=== PATIENT | male | born 1955 | race Caucasian/White ===

== ENCOUNTER 2016-11-28 06:29 | Inpatient (IN) | payer BC ==
--- NOTE | ~2016-11-28 | CN ---
Consultation Report [facility] [address] [place]. [address] NAME: AZIZA JASON : 55 STATUS : ADM IN PAT#: [id number] AGE: 61 ADM/REG DATE : 11/28/16 MR#: [id number] REPORT SERV DATE: 11/29/16 DICTATED BY: TOBI POWELL DATE: 11/29/16 REPORT STATUS : Draft TRANSCRIBED BY: MODL DATE: 11/29/16 CONSULTATION DATE OF CONSULTATION: 11/29/2016 PERTINENT HISTORY: The patient is a 61-year-old gentleman who underwent cardiac catheterization by Dr. Tobi Evangelista due to diminished left ventricular function with concern of coronary artery disease. Cardiac catheterization demonstrated 50% LAD artery stenosis with very tight stenosis of the ramus intermedius, circumflex artery, and proximal right coronary artery. The left ventricular function is not examined by left ventriculogram. Previous echocardiogram demonstrated decreased cardiac function. The patient had been referred for cardiac surgical intervention. The patient did have dual chamber permanent pacemaker in place due to heart block. PAST MEDICAL HISTORY: Significant for no previous open cardiothoracic surgery. he had a previous history of dual chamber permanent pacemaker placement, left infraclavicular region and had history of hypertension, hyperlipidemia. SOCIAL HISTORY: Negative for tobacco or ethanol use. FAMILY HISTORY: Positive for coronary disease. REVIEW OF SYSTEMS: Negative except those listed in the history of present illness. PHYSICAL EXAMINATION: VITAL SIGNS: Examination is afebrile. Blood pressure was 140/90, heart rate was 70 and paced. GENERAL: He is in no acute distress. CONSTITUTIONAL: Well-developed, well-nourished. NEUROLOGICAL: He is intact. RESPIRATORY: clear, bilateral. LUNGS: With no wheeze, rales, or rhonchi. CARDIAC: Regular rate and rhythm, paced and no murmur noted. VASCULAR: The vascular exam showed a full pulse throughout. GI: Examination showed the abdomen is soft and nontender, without masses. EXTREMITIES: Showed no edema. SKIN: Showed no rash. The cardiac catheterization by nc demonstrated LAD artery stenosis, approximately 40% to 50% proximally and a tight lesion very distally. There is a lesion involving the ramus intermedius and circumflex arteries and also lesion of proximal right coronary artery. IMPRESSION: At this time is severe two-vessel coronary disease, diminished left ventricular function. We will plan to proceed with coronary revascularization. We will proceed with Consultation Report [facility] [address] [place]. [address] NAME: AZIZA JASON : 55 STATUS : ADM IN PAT#: [id number] AGE: 61 ADM/REG DATE : 11/28/16 MR#: [id number] REPORT SERV DATE: 11/29/16 DICTATED BY: TOBI POWELL DATE: 11/29/16 REPORT STATUS : Draft TRANSCRIBED BY: KIRSTY DATE: 11/29/16 intraoperative transesophageal echocardiogram to evaluate the left ventricular function as well as mitral valve function. JACKY/KIRSTY Tobi Powell M.D. / [id number] CC: Rupinder Gagnon Jr., IV
--- NOTE | ~2016-11-28 | DS ---
Discharge Summary [facility] [address] [place]. [address] NAME: AZIZA JASON : 55 STATUS : DIS IN PAT#: [id number] AGE: 61 ADM/REG DATE : 11/28/16 MR#: [id number] REPORT SERV DATE: 12/18/16 DICTATED BY: TOBI POWELL DATE: 12/17/16 REPORT STATUS : Draft TRANSCRIBED BY: KIRSTY DATE: 12/17/16 Data Collection from hospitalization DISCHARGE DIAGNOSES: 1. Coronary artery disease, status post coronary artery bypass grafting. 2. Ventricular tachycardia. 3. Type 2 diabetes mellitus. 4. Hypertension. 5. Paroxysmal atrial fibrillation. 6. History of complete heart block. CONSULTATIONS: Nando Evangelista M.D. and Bird Mccloud NP PROCEDURES PERFORMED: 1. Cardiac catheterization, 11/28/2016. 2. Urgent coronary artery bypass grafting x4 with endoscopic vein harvest utilizing reverse saphenous vein graft from the aorta to the left anterior descending artery from the aorta to the ramus intermedius, from the aorta to the obtuse marginal artery, from the aorta to the right coronary artery. Also, mitral valve repair utilizing 28 mm Paula annuloplasty ring, ligation of left atrial appendage, and transesophageal echocardiography, 11/29/2016. 3. Vein mapping of the bilateral lower extremities, 11/28/2016. MEDICATIONS: Aspirin 1 tablet daily, Lipitor 40 mg at bedtime, Coreg 3.125 mg twice a day, Amaryl 1 tablet daily, [place] 5/325 one to two tablets every six hours as needed, Prinivil 2.5 mg daily, Glucophage 1000 mg with breakfast and supper, Aldactone 25 mg daily. He was instructed not to continue Invokamet or Viagra. CONDITION AT DISCHARGE: Stable. DISPOSITION: The patient was discharged to home. A low-cholesterol, low-sodium 2000 calorie diabetic diet with activities as instructed. He would follow up with Dr. Cedric Alves, 12/30/2016, and would follow up with Dr. Chaitanya Phillips, 02/11/2017. He would follow up in the [facility], 02/03/2017. HOSPITAL COURSE: This is a 61-year-old man who underwent current pacemaker placement due to heart block. A previous echocardiogram had demonstrated decreased cardiac function. It was felt the patient would need to undergo cardiac catheterization and possible further intervention. He was admitted to the hospital at this time for further evaluation and treatment. Upon admission, he was taken to the cardiac clam bed laborer by Dr. Gagnon where he underwent the above-mentioned procedure. He tolerated this well. There were no complications. The cardiac catheterization demonstrated 50% LAD stenosis with very tight stenosis of the ramus intermedius, circumflex artery, and proximal right coronary artery. It was felt that the patient would need to undergo coronary artery bypass grafting. The following day, he was taken to the operating room where he underwent the above-mentioned procedure. He tolerated this well and there were no complications. On postop day 1, he Discharge Summary [address] [place]. [address] NAME: AZIZA JASON : 55 STATUS : DIS IN [facility]#: [id number] AGE: 61 ADM/REG DATE : 11/28/16 MR#: [id number] REPORT SERV DATE: 12/18/16 DICTATED BY: TOBI POWELL DATE: 12/17/16 REPORT STATUS : Draft TRANSCRIBED BY: KIRSTY DATE: 12/17/16 looks good. We encouraged him to use pulmonary toilet. Inotropes were being weaned. He had no shortness of breath. He did have some bladder spasms. He does have a decreased ejection fraction, but it was stable. He was going to be placed on Pyridium or oxybutynin. His incisions looked okay. On postop day #2, he continued to do well. He was now off Dobutrex. Pacing wires were removed. The [place] catheter was discontinued. He looks better. He had no shortness of breath. His bladder spasms had decreased. He was seen by Bird Mccloud. The patient had a run of ventricular tachycardia. He had been asked to see the patient regarding diabetes. Aggressive pulmonary toilet continued. On 12/02/2016, he was alert and cooperative. He had no further recurrence of ventricular tachycardia on amiodarone. He was eating well and feeling better. He had no new issues. Insulin was adjusted. We were going to resume the metformin. The next day, he was encouraged to mobilize. The wound VAC remained in place. He did have a bowel movement. He had some incisional soreness, but no other complaints. Over the next couple of days, he continued to progress. Discharge planning was performed. He said he was feeling good. We encouraged him to increase his activity. He was going to be discharged with a LifeVest. Discharge planning continued. His chest tube was removed. His insulin regimen was adjusted. On 12/06/2016, he continued to do well. Blood sugars were well controlled. A LifeVest was placed. Discharge instructions were given. Due to his improved and stable condition, he was discharged to home to be followed by home health care with the above- stated instructions. Information collected by: Mala Kirby I submit the above information as my discharge summary. TG/MODL Tobi Powell M.D. / [id number] CC: Rupinder Gagnon Jr., M.D.
--- NOTE | ~2016-11-28 | OP ---
Record Of Operation [facility] [address] [place]. [address] NAME: AZIZA JASON : 55 STATUS : ADM IN PAT#: [id number] AGE: 61 ADM/REG DATE : 11/28/16 MR#: [id number] REPORT SERV DATE: 11/30/16 DICTATED BY: TOBI POWELL DATE: 11/29/16 REPORT STATUS : Draft TRANSCRIBED BY: MODL DATE: 11/29/16 DATE OF PROCEDURE: 11/29/2016 PREOPERATIVE DIAGNOSES: Coronary artery disease, congestive heart failure, and mitral insufficiency. POSTOPERATIVE DIAGNOSES: Coronary artery disease, congestive heart failure, and mitral insufficiency. OPERATIVE PROCEDURE: Urgent coronary artery bypass grafting x4 with endoscopic vein harvest utilizing reverse saphenous vein graft from the aorta to the left anterior descending artery, from the aorta to the ramus intermedius, from the aorta to the obtuse marginal artery, from the aorta to the right coronary artery; also mitral valve repair utilizing a 28 mm Paula annuloplasty ring; ligation of left atrial appendage; and transesophageal echocardiography. OPERATIVE SURGEON: Tobi Powell M.D. ANESTHESIA: General endotracheal anesthesia, AA. Chest tubes were placed, one chest tube in the mediastinum. Pacing wires were placed, two in the right ventricle and two in the right atrium. PERTINENT HISTORY: The patient is a 61-year-old gentleman, admitted to the hospital by Dr. Evangelista with a diagnosis of cardiomyopathy, possibly ischemic. The patient was admitted to the hospital for cardiac catheterization. The catheterization demonstrated very diffuse three-vessel coronary artery disease. An echocardiogram noted diminished left ventricular function. No left ventriculogram had been performed. The patient is noted to have mitral insufficiency by a transthoracic echocardiography. The patient has been referred for cardiac surgical intervention. OPERATIVE FINDINGS: The patient had severely diffuse coronary artery disease with diminished left ventricular function. Transesophageal echocardiogram demonstrated severe mitral insufficiency with a dilated left ventricle. At the completion of the procedure, there was no further mitral insufficiency after mitral valve repair. The proximal LAD artery stenosis was only approximately 40% to 50%; therefore, left internal mammary artery was not used to bypass the conduit, all vein conduit was used. DESCRIPTION OF PROCEDURE: The patient was taken to the operating room and placed in supine position. Anesthesia was obtained. The patient was prepped and draped in the usual sterile fashion. Transesophageal echocardiogram was performed demonstrating severely diminished ejection fraction of approximately 25% with severe mitral insufficiency. The greater saphenous vein was then harvested from the lower extremities with invasive technique and those wounds were closed in a two-layer fashion. Midline sternotomy incision was made and sternum was divided. Heparin was then infused. The patient was started on cardiopulmonary bypass. Retrograde cardioplegia cannula was placed. Antegrade cardioplegia cannula was Record Of Operation [facility] [id number] [facility] [place]. [address] NAME: AZIZA JASON : 55 STATUS : ADM IN PAT#: [id number] AGE: 61 ADM/REG DATE : 11/28/16 MR#: [id number] REPORT SERV DATE: 11/30/16 DICTATED BY: TOBI POWELL DATE: 11/29/16 REPORT STATUS : Draft TRANSCRIBED BY: KIRSTY DATE: 11/29/16 placed. Cross-clamp was then applied. cardioplegia was infused in antegrade and retrograde fashion over a period of 15 minutes. The right coronary artery was bypassed with reverse saphenous vein graft in an end-to-side fashion. The obtuse marginal artery was bypassed with reverse saphenous vein graft in an end-to-side fashion. The ramus intermedius was bypassed with reverse saphenous vein graft in an end-to-side fashion. The LAD artery was bypassed with reverse saphenous vein graft in an end-to-side fashion. The left atrium was then opened along the interatrial groove. Retractor was placed. The left atrial appendage was oversewn in a linear two-layer fashion with running 4-0 Prolene suture. Mitral valve was examined and found to be with a dilated annulus with mitral valve leaflets intact. A 2- 0 [place] nonpledgeted sutures were placed along the posterior annulus from one commissure to the next. These were then passed through the sewing ring of a 28 mm Paula annuloplasty ring. The ring was seated on the annulus. All sutures were tied with a Cor- Knot. The mitral valve was tested and found to be completely sufficient. The left atriotomy was then closed with running 4-0 Prolene suture. Cross-clamp was then placed with the four proximal anastomoses on the ascending aorta. Cross-clamp was removed. Good hemostasis was noted. Two pacing wires on the right ventricle and two on the right atrium and one chest tube was placed in the mediastinum. The patient was warmed to 36 centigrade to maintain his permanent paced rhythm with inotropic support. He was weaned from the cardiopulmonary bypass. Mitral valve was examined via transesophageal echocardiogram and was found to be completely sufficient, no leak. The left ventricular function noted to be improved. Protamine sulfate was infused. Hemostasis was adequate. Sternum was closed with four sternal cables. Soft tissue was closed in the usual manner. Sterile dressings were applied. The patient tolerated the procedure well and was taken back to the ICU in stable condition. JACKY/KIRSTY Tobi Powell M.D. / [id number] CC: Nando Evangelista Jr., M.D.
[~2016-11-28 06:29] MED LIST: AMARYL4 PO; ASAB PO; COREG3 PO; GLUCOPHAGE1000 MG PO; INVOKAMET; LIPITOR40 PO; LOP25 PO; PRAVACHOL80 MG PO; PRIN2.5 PO; PRIN5 PO; SPIRO25 PO; ULTRAM50 PO; VIAGRA25 PO
[2016-11-28 07:16] LABS: BUN (BLOOD UREA NITROGEN) 21 MG/DL (6-23); CALCIUM, SERUM 8.7 MG/DL (8.5-10.4); CHLORIDE, SERUM 106 MMOL/L (96-112); CHOL/HDL RATIO(NOT ORDER) 2.5 (0-5); CHOLESTEROL 118 MG/DL (< 200); CO2 (CARBON DIOXIDE) 29 MMOL/L (24-34); CREATININE 1.02 MG/DL (0.70-1.30); GFR AFRICAN AMERICAN 92 ML/MIN (>=60); GFR NON AFRICAN AMERICAN 79 ML/MIN (>=60); GLUCOSE, SERUM 183 MG/DL (60-99); HDL CHOLESTEROL 47 MG/DL (> 39); LDL CHOLESTEROL 51 MG/DL (< 130); NON-HDL CHOLESTEROL 71 MG/DL (< 160); POTASSIUM, SERUM 4.4 MMOL/L (3.5-5.3); SODIUM, SERUM 141 MMOL/L (135-148); TRIGLYCERIDE 100 MG/DL (< 150)
[2016-11-28 07:46] LABS: BASOPHILS 0.3 %; BASOPHILS ABSOLUTE 0.02 10/3/uL (0.0-0.16); EOSINOPHILS ABSOLUTE 0.14 10/3/uL (0.0-0.53); HEMATOCRIT 44.8 % (40.0-51.0); IMMATURE GRANULOCYTES 0.3 %; IMMATURE GRANULOCYTES ABSOLUTE 0.02 10/3/uL (0.0-0.11); LYMPHOCYTES 29.5 %; LYMPHOCYTES ABSOLUTE 2.04 10/3/uL (0.67-4.30); MANUAL DIFF NO %; MEAN CORPUS HGB CONC 35.7 g/dL (32.0-36.0); MEAN CORPUSCULAR HEMOGLOB 29.7 pg (26.0-34.0); MEAN CORPUSCULAR VOLUME 83.1 fL (80-100); MEAN PLATELET VOLUME 9.8 fL (9.2-13.0); MONOCYTES 7.4 %; MONOCYTES ABSOLUTE 0.51 10/3/uL (0.21-1.20); NEUTROPHILS 60.5 %; NEUTROPHILS ABSOLUTE 4.19 10/3/uL (2.02-8.40); PLATELET COUNT 179 10/3/uL (150-400); RBC DISTRIBUTION WIDTH 13.1 % (12.0-16.0); RED CELL COUNT 5.39 10/6/uL (4.7-6.1); WHITE BLOOD CELLS 6.9 10/3/uL (4.5-10.5)
[2016-11-28 16:55] LABS: ASCORBIC ACID (UR NOT ORDER) NEG (NEG); BILIRUBIN, URINE NEGATIVE (NEG); KETONE, URINE NEGATIVE (NEG); LEUKOCYTE ESTERASE(NOT OR NEG (NEG); WBC (NOT ORDERED) (RFLEX) 1 (0-5)
[2016-11-29 03:03] LABS: BASOPHILS 0.2 %; BASOPHILS ABSOLUTE 0.01 10/3/uL (0.0-0.16); EOSINOPHILS 2.1 %; EOSINOPHILS ABSOLUTE 0.12 10/3/uL (0.0-0.53); HEMATOCRIT 42.4 % (40.0-51.0); HEMOGLOBIN 15.2 g/dL (13.6-17.8); IMMATURE GRANULOCYTES 0.2 %; IMMATURE GRANULOCYTES ABSOLUTE 0.01 10/3/uL (0.0-0.11); LYMPHOCYTES 28.4 %; LYMPHOCYTES ABSOLUTE 1.61 10/3/uL (0.67-4.30); MEAN CORPUS HGB CONC 35.8 g/dL (32.0-36.0); MEAN CORPUSCULAR HEMOGLOB 29.7 pg (26.0-34.0); MEAN CORPUSCULAR VOLUME 82.8 fL (80-100); MEAN PLATELET VOLUME 9.5 fL (9.2-13.0); MONOCYTES 7.6 %; MONOCYTES ABSOLUTE 0.43 10/3/uL (0.21-1.20); NEUTROPHILS 61.5 %; NEUTROPHILS ABSOLUTE 3.49 10/3/uL (2.02-8.40); PLATELET COUNT 145 10/3/uL (150-400); RBC DISTRIBUTION WIDTH 12.9 % (12.0-16.0); RED CELL COUNT 5.12 10/6/uL (4.7-6.1); WHITE BLOOD CELLS 5.7 10/3/uL (4.5-10.5)
[2016-11-29 03:04] LABS: MANUAL DIFF NO %
[2016-11-29 03:12] LABS: INTERNATIONAL NORMAL RATI 1.1 UNITS (-); PROTIME (NOT ORD) 13.9 SEC (12.0-14.5)
[2016-11-29 03:19] LABS: % IRON SAT 24 % (20-50); A/G RATIO 1.2 (0.7-1.9); ALBUMIN 3.5 G/DL (3.5-5.0); ALKALINE PHOSPHATASE 46 U/L (45-117); CALCIUM, SERUM 8.3 MG/DL (8.5-10.4); CHLORIDE, SERUM 108 MMOL/L (96-112); CO2 (CARBON DIOXIDE) 27 MMOL/L (24-34); CREATININE 0.85 MG/DL (0.70-1.30); GFR AFRICAN AMERICAN 109 ML/MIN (>=60); GFR NON AFRICAN AMERICAN 94 ML/MIN (>=60); GLOBULIN 2.9 G/DL (2.5-4.1); IRON BINDING CAPACITY 248 MCG/DL (250-450); IRON, SERUM 59 MCG/DL (35-150); SGOT(AST) 9 U/L (5-40); SGPT(ALT) 18 U/L (5-65); SODIUM, SERUM 144 MMOL/L (135-148); TOTAL BILIRUBIN 0.6 MG/DL (0-1.2); TOTAL PROTEIN 6.4 G/DL (6.0-8.5)
[2016-11-29 03:20] LABS: BUN (BLOOD UREA NITROGEN) 17 MG/DL (6-23); GLUCOSE, SERUM 141 MG/DL (60-99)
[2016-11-29 20:34] LABS: CARBOXYHEMOGLOBIN 0.3 % (0-3); HCO3 (ACTUAL BICARBONATE) 20.4 MEQ/L (23-27); HEMOBLOGIN CONTENT 13.5 G/DL (14-18); INSTRUMENT SERIAL # 11843; METHEMOGLOBIN 0.5 % (0-3); MODE SIMV; O2 CONTENT 18.5 VOL% (18-24); OPERATOR ID 32193; PCO2 (CO2 TENSION) 36 MMHG (35-45); PO2 (O2 TENSION) 119 MMHG (79-93); SAMPLE Arterial; TIDAL VOLUME 700 ML; pH 7.38 (7.37-7.43)
[2016-11-29 21:09] LABS: BE (BASE EXCESS) -2.3 MEQ/L (0 +/- 2.5); CARBOXYHEMOGLOBIN 0.3 % (0-3); HCO3 (ACTUAL BICARBONATE) 21.2 MEQ/L (23-27); HEMOBLOGIN CONTENT 13.8 G/DL (14-18); INSTRUMENT SERIAL # 11843; METHEMOGLOBIN 0.5 % (0-3); MODE SIMV; O2 CONTENT 19.9 VOL% (18-24); OPERATOR ID 32193; PCO2 (CO2 TENSION) 33 MMHG (35-45); PO2 (O2 TENSION) 355 MMHG (79-93); SAMPLE Arterial; TIDAL VOLUME 750 ML; pH 7.43 (7.37-7.43)
[2016-11-29 21:34] LABS: HEMOGLOBIN 12.6 g/dL (13.6-17.8); MEAN CORPUS HGB CONC 35.6 g/dL (32.0-36.0); MEAN CORPUSCULAR HEMOGLOB 29.6 pg (26.0-34.0); MEAN CORPUSCULAR VOLUME 83.1 fL (80-100); MEAN PLATELET VOLUME 9.8 fL (9.2-13.0); PLATELET COUNT 103 10/3/uL (150-400); RED CELL COUNT 4.26 10/6/uL (4.7-6.1)
[2016-11-29 21:35] LABS: HEMATOCRIT 35.4 % (40.0-51.0); MANUAL DIFF YES %; WHITE BLOOD CELLS 9.5 10/3/uL (4.5-10.5)
[2016-11-29 21:40] LABS: PARTIAL THROMBO TIME 33.1 SEC (22.5-37.2)
[2016-11-29 22:10] LABS: BUN (BLOOD UREA NITROGEN) 16 MG/DL (6-23); CALCIUM, SERUM 7.9 MG/DL (8.5-10.4); CHLORIDE, SERUM 114 MMOL/L (96-112); CO2 (CARBON DIOXIDE) 23 MMOL/L (24-34); CREATININE 0.84 MG/DL (0.70-1.30); GFR AFRICAN AMERICAN 110 ML/MIN (>=60); GFR NON AFRICAN AMERICAN 95 ML/MIN (>=60); POTASSIUM, SERUM 4.2 MMOL/L (3.5-5.3); SODIUM, SERUM 145 MMOL/L (135-148)
[2016-11-29 22:13] LABS: GLUCOSE, SERUM 108 MG/DL (60-99)
[2016-11-29 22:23] LABS: BAND NEUTROPHILS 2 %; LYMPHOCYTES 14 %; LYMPHOCYTES ABSOLUTE (CALC) 1.33 10/3/uL (0.67-4.30); MONOCYTES 4 %; MONOCYTES ABSOLUTE (CALC) 0.38 10/3/uL (0.21-1.20); NEUTROPHILS ABSOLUTE (CALC) 7.79 10/3/uL (2.02-8.40); PLATELET ESTIMATE SLT DEC (ADEQUATE); SEGMENTED NEUTROPHIL (0) 80 %; TOTAL NUCLEATED CELLS 100
[2016-11-29 22:24] LABS: RBC MORPHOLOGY NORM (NORMAL)
[2016-11-30 00:36] LABS: BE (BASE EXCESS) -6.4 MEQ/L (0 +/- 2.5); CARBOXYHEMOGLOBIN 0.5 % (0-3); DEVICE VM; HCO3 (ACTUAL BICARBONATE) 18.9 MEQ/L (23-27); INSTRUMENT SERIAL # 11843; METHEMOGLOBIN 0.4 % (0-3); O2 CONTENT 15.5 VOL% (18-24); OPERATOR ID 32193; PCO2 (CO2 TENSION) 37 MMHG (35-45); PO2 (O2 TENSION) 74 MMHG (79-93); SAMPLE Arterial; pH 7.33 (7.37-7.43)
[2016-11-30 02:03] LABS: HEMOGLOBIN 11.1 g/dL (13.6-17.8); MEAN CORPUS HGB CONC 36.4 g/dL (32.0-36.0); MEAN CORPUSCULAR HEMOGLOB 30.2 pg (26.0-34.0); MEAN CORPUSCULAR VOLUME 83.1 fL (80-100); MEAN PLATELET VOLUME 9.4 fL (9.2-13.0); PLATELET COUNT 97 10/3/uL (150-400); RBC DISTRIBUTION WIDTH 12.9 % (12.0-16.0); RED CELL COUNT 3.67 10/6/uL (4.7-6.1); WHITE BLOOD CELLS 10.3 10/3/uL (4.5-10.5)
[2016-11-30 02:04] LABS: HEMATOCRIT 30.5 % (40.0-51.0); MANUAL DIFF YES %
[2016-11-30 02:10] LABS: INTERNATIONAL NORMAL RATI 1.5 UNITS (-); PARTIAL THROMBO TIME 45.6 SEC (22.5-37.2); PROTIME (NOT ORD) 18.4 SEC (12.0-14.5)
[2016-11-30 02:19] LABS: BUN (BLOOD UREA NITROGEN) 16 MG/DL (6-23); CALCIUM, SERUM 7.5 MG/DL (8.5-10.4); CHLORIDE, SERUM 116 MMOL/L (96-112); CO2 (CARBON DIOXIDE) 22 MMOL/L (24-34); CREATININE 0.81 MG/DL (0.70-1.30); GFR AFRICAN AMERICAN 111 ML/MIN (>=60); GFR NON AFRICAN AMERICAN 96 ML/MIN (>=60); POTASSIUM, SERUM 3.9 MMOL/L (3.5-5.3); SODIUM, SERUM 149 MMOL/L (135-148)
[2016-11-30 02:20] LABS: GLUCOSE, SERUM 156 MG/DL (60-99)
[2016-11-30 02:39] LABS: BAND NEUTROPHILS 7 %; LYMPHOCYTES 3 %; LYMPHOCYTES ABSOLUTE (CALC) 0.31 10/3/uL (0.67-4.30); MONOCYTES 3 %; MONOCYTES ABSOLUTE (CALC) 0.31 10/3/uL (0.21-1.20); NEUTROPHILS ABSOLUTE (CALC) 9.68 10/3/uL (2.02-8.40); PLATELET ESTIMATE DEC (ADEQUATE); SEGMENTED NEUTROPHIL (0) 87 %; TOTAL NUCLEATED CELLS 100
[2016-11-30 02:40] LABS: RBC MORPHOLOGY NORM (NORMAL)
[2016-11-30 16:14] LABS: HEMATOCRIT 28.6 % (40.0-51.0); HEMOGLOBIN 10.3 g/dL (13.6-17.8)
[2016-11-30 16:23] LABS: POTASSIUM, SERUM 4.1 MMOL/L (3.5-5.3)
[2016-12-01 03:20] LABS: BASOPHILS 0 %; EOSINOPHILS 0 %; HEMATOCRIT 27.5 % (40.0-51.0); HEMOGLOBIN 9.9 g/dL (13.6-17.8); IMMATURE GRANULOCYTES 0.2 %; IMMATURE GRANULOCYTES ABSOLUTE 0.02 10/3/uL (0.0-0.11); LYMPHOCYTES 10.2 %; LYMPHOCYTES ABSOLUTE 0.93 10/3/uL (0.67-4.30); MEAN CORPUSCULAR VOLUME 83.3 fL (80-100); MEAN PLATELET VOLUME 9.7 fL (9.2-13.0); MONOCYTES 10.1 %; MONOCYTES ABSOLUTE 0.92 10/3/uL (0.21-1.20); NEUTROPHILS 79.5 %; NEUTROPHILS ABSOLUTE 7.23 10/3/uL (2.02-8.40); PLATELET COUNT 79 10/3/uL (150-400); RBC DISTRIBUTION WIDTH 13.3 % (12.0-16.0); WHITE BLOOD CELLS 9.1 10/3/uL (4.5-10.5)
[2016-12-01 03:23] LABS: MANUAL DIFF NO %
[2016-12-01 03:33] LABS: CHLORIDE, SERUM 109 MMOL/L (96-112); CO2 (CARBON DIOXIDE) 24 MMOL/L (24-34); CREATININE 0.74 MG/DL (0.70-1.30); GFR AFRICAN AMERICAN 115 ML/MIN (>=60); GFR NON AFRICAN AMERICAN 100 ML/MIN (>=60); POTASSIUM, SERUM 4.3 MMOL/L (3.5-5.3)
[2016-12-01 03:34] LABS: BUN (BLOOD UREA NITROGEN) 20 MG/DL (6-23); GLUCOSE, SERUM 94 MG/DL (60-99); SODIUM, SERUM 136 MMOL/L (135-148)
[2016-12-01 04:30] LABS: PLATELET ESTIMATE DEC (ADEQUATE); RBC MORPHOLOGY NORM (NORMAL)
[2016-12-02 04:56] LABS: BASOPHILS 0 %; EOSINOPHILS 0.5 %; EOSINOPHILS ABSOLUTE 0.04 10/3/uL (0.0-0.53); HEMATOCRIT 28.1 % (40.0-51.0); HEMOGLOBIN 10.1 g/dL (13.6-17.8); IMMATURE GRANULOCYTES 0.1 %; IMMATURE GRANULOCYTES ABSOLUTE 0.01 10/3/uL (0.0-0.11); LYMPHOCYTES 12.5 %; LYMPHOCYTES ABSOLUTE 1.07 10/3/uL (0.67-4.30); MEAN CORPUS HGB CONC 35.9 g/dL (32.0-36.0); MEAN CORPUSCULAR HEMOGLOB 30.2 pg (26.0-34.0); MEAN CORPUSCULAR VOLUME 84.1 fL (80-100); MEAN PLATELET VOLUME 9.9 fL (9.2-13.0); MONOCYTES 9.7 %; MONOCYTES ABSOLUTE 0.83 10/3/uL (0.21-1.20); NEUTROPHILS 77.2 %; NEUTROPHILS ABSOLUTE 6.59 10/3/uL (2.02-8.40); PLATELET COUNT 95 10/3/uL (150-400); RBC DISTRIBUTION WIDTH 13.4 % (12.0-16.0); RED CELL COUNT 3.34 10/6/uL (4.7-6.1); WHITE BLOOD CELLS 8.5 10/3/uL (4.5-10.5)
[2016-12-02 04:57] LABS: MANUAL DIFF NO %
[2016-12-02 05:07] LABS: BUN (BLOOD UREA NITROGEN) 26 MG/DL (6-23); CALCIUM, SERUM 8.2 MG/DL (8.5-10.4); CHLORIDE, SERUM 101 MMOL/L (96-112); CO2 (CARBON DIOXIDE) 27 MMOL/L (24-34); CREATININE 0.89 MG/DL (0.70-1.30); GFR AFRICAN AMERICAN 107 ML/MIN (>=60); GFR NON AFRICAN AMERICAN 92 ML/MIN (>=60); GLUCOSE, SERUM 179 MG/DL (60-99); POTASSIUM, SERUM 4.9 MMOL/L (3.5-5.3); SODIUM, SERUM 134 MMOL/L (135-148)
[2016-12-02 20:39] LABS: BUN (BLOOD UREA NITROGEN) 28 MG/DL (6-23); CALCIUM, SERUM 8.2 MG/DL (8.5-10.4); CHLORIDE, SERUM 101 MMOL/L (96-112); CO2 (CARBON DIOXIDE) 28 MMOL/L (24-34); CREATININE 0.89 MG/DL (0.70-1.30); GFR AFRICAN AMERICAN 107 ML/MIN (>=60); GFR NON AFRICAN AMERICAN 92 ML/MIN (>=60); POTASSIUM, SERUM 4.3 MMOL/L (3.5-5.3); SODIUM, SERUM 136 MMOL/L (135-148)
[2016-12-02 20:41] LABS: GLUCOSE, SERUM 68 MG/DL (60-99)
[2016-12-03 07:16] LABS: INTERNATIONAL NORMAL RATI 1.3 UNITS (-)
[2016-12-03 07:20] LABS: CALCIUM, SERUM 8.5 MG/DL (8.5-10.4); CHLORIDE, SERUM 100 MMOL/L (96-112); CO2 (CARBON DIOXIDE) 25 MMOL/L (24-34); CREATININE 0.72 MG/DL (0.70-1.30); GFR AFRICAN AMERICAN 117 ML/MIN (>=60); GFR NON AFRICAN AMERICAN 101 ML/MIN (>=60); POTASSIUM, SERUM 4.4 MMOL/L (3.5-5.3); SODIUM, SERUM 133 MMOL/L (135-148)
[2016-12-03 07:21] LABS: BUN (BLOOD UREA NITROGEN) 21 MG/DL (6-23); GLUCOSE, SERUM 126 MG/DL (60-99)
[2016-12-03 07:43] LABS: BASOPHILS 0.1 %; BASOPHILS ABSOLUTE 0.01 10/3/uL (0.0-0.16); EOSINOPHILS 1.1 %; EOSINOPHILS ABSOLUTE 0.09 10/3/uL (0.0-0.53); HEMOGLOBIN 11.3 g/dL (13.6-17.8); IMMATURE GRANULOCYTES 0.4 %; IMMATURE GRANULOCYTES ABSOLUTE 0.03 10/3/uL (0.0-0.11); LYMPHOCYTES 11.6 %; LYMPHOCYTES ABSOLUTE 0.99 10/3/uL (0.67-4.30); MEAN CORPUSCULAR HEMOGLOB 30.2 pg (26.0-34.0); MEAN PLATELET VOLUME 10.1 fL (9.2-13.0); MONOCYTES 6.8 %; MONOCYTES ABSOLUTE 0.58 10/3/uL (0.21-1.20); NEUTROPHILS ABSOLUTE 6.81 10/3/uL (2.02-8.40); RBC DISTRIBUTION WIDTH 13.3 % (12.0-16.0); RED CELL COUNT 3.74 10/6/uL (4.7-6.1); WHITE BLOOD CELLS 8.5 10/3/uL (4.5-10.5)
[2016-12-03 07:45] LABS: HEMATOCRIT 31.4 % (40.0-51.0); MANUAL DIFF NO %; PLATELET COUNT 135 10/3/uL (150-400); PLATELET ESTIMATE SLT DEC (ADEQUATE); RBC MORPHOLOGY NORM (NORMAL)
[2016-12-06] MEDS ORDERED: NORCO1 TA1 PO (12:56)
[2016-12-06] MEDS ORDERED: GLUCOPHAGE1000 MG PO (12:56)
== END 2016-12-06 15:07 | disposition home health service (06) | DRG 217 ==
LOC: CORLMH 06:29 → SSU1 06:35 → SDC/OF 11-29 09:28 → PACU 11-29 16:58 → CVICU 11-29 18:15 → 5NO 12-01 14:48
PROVIDERS: Anesthesiology; Internal Medicine Cardiovascular Disease; Internal Medicine Interventional Cardiology; Thoracic Surgery (Cardiothoracic Vascular Surgery)
PROC: 4A023N7 Measurement of Cardiac Sampling and Pressure, Left Heart, Percutaneous Approach (ICD-10-PCS; principal; 2016-11-28)
PROC: B2111ZZ Fluoroscopy of Multiple Coronary Arteries using Low Osmolar Contrast (ICD-10-PCS; 2016-11-28)
PROC: B2151ZZ Fluoroscopy of Left Heart using Low Osmolar Contrast (ICD-10-PCS; 2016-11-28)
PROC: 06BQ0ZZ Excision of Left Saphenous Vein, Open Approach (ICD-10-PCS; 2016-11-29)
PROC: 06BP0ZZ Excision of Right Saphenous Vein, Open Approach (ICD-10-PCS; 2016-11-29)
PROC: 5A1221Z Performance of Cardiac Output, Continuous (ICD-10-PCS; 2016-11-29)
PROC: B246ZZ4 Ultrasonography of Right and Left Heart, Transesophageal (ICD-10-PCS; 2016-11-29)
PROC: 02B70ZK Excision of Left Atrial Appendage, Open Approach (ICD-10-PCS; 2016-11-29)
PROC: 02UG0JZ Supplement Mitral Valve with Synthetic Substitute, Open Approach (ICD-10-PCS; 2016-11-29 12:00)
PROC: 021309W Bypass Coronary Artery, Four or More Arteries from Aorta with Autologous Venous Tissue, Open Approach (ICD-10-PCS; 2016-11-29 12:00)
DX: I25.10 Atherosclerotic heart disease of native coronary artery without angina pectoris (principal); I47.2 Ventricular tachycardia; I73.9 Peripheral vascular disease, unspecified; I34.0 Nonrheumatic mitral (valve) insufficiency; E78.5 Hyperlipidemia, unspecified; E11.9 Type 2 diabetes mellitus without complications; D64.9 Anemia, unspecified; I25.5 Ischemic cardiomyopathy; Z95.0 Presence of cardiac pacemaker; I10 Essential (primary) hypertension
CPT/HCPCS: 36415; 71010; 71020; 80048; 80053; 80061; 81001; 82330; 82803; 82805; 82947; 82962; 83036; 83540; 83550; 83735; 84132; 84295; 85014; 85018; 85025; 85347; 85610; 85730; 86850; 86900; 86901; 86920; 87641; 93005; 93312; 93320; 93325; 93458; 94002; 94640; 94660; 94770; 99152; 99153; A9270-GY; C1725; C1751; C1757; C1769; C1887; C1894; G0365; J0690; J1644; J1940; J2150; J2250; J2370; J2405; J2440; J2720; J3010; J3475; J3480; P9045; P9047; Q9967